=== PATIENT | male | born 1985 ===

== ENCOUNTER 2021-11-12 07:46 | Outpatient (REF) | payer OTHER, SELFPAY ==
--- NOTE | ~2021-11-12 | XR_ITS ---
EXAMINATION: XR WRIST, RIGHT XR WRIST, LEFT CLINICAL INFORMATION: Bilateral wrist pain. COMPARISON: None. TECHNIQUE: PA, lateral, and oblique views of each wrist. 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 The scaphoid is not well seen on these images and a scaphoid deformity or fracture cannot be excluded. There is cystic change in the lunate which may be due to a carpal cyst or degenerative arthrosis. Lunocapitate articulation appears relatively well-preserved. Ulnar styloid is fractured and nondisplaced. LEFT WRIST: Scapholunate interval is widened. 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 Joint spaces remain relatively well preserved. No fractures are identified. Soft tissues are unremarkable. 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 Deformity of the right scaphoid is suspected, potentially due to a prior fracture. This is not well assessed on these images. 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
--- NOTE | ~2021-11-12 | XR_ITS ---
EXAMINATION: XR WRIST, RIGHT XR WRIST, LEFT CLINICAL INFORMATION: Bilateral wrist pain. COMPARISON: None. TECHNIQUE: PA, lateral, and oblique views of each wrist. 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 The scaphoid is not well seen on these images and a scaphoid deformity or fracture cannot be excluded. There is cystic change in the lunate which may be due to a carpal cyst or degenerative arthrosis. Lunocapitate articulation appears relatively well-preserved. Ulnar styloid is fractured and nondisplaced. LEFT WRIST: Scapholunate interval is widened. 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 Joint spaces remain relatively well preserved. No fractures are identified. Soft tissues are unremarkable. 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 Deformity of the right scaphoid is suspected, potentially due to a prior fracture. This is not well assessed on these images. 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
== END 2021-11-12 07:47 | disposition home or self-care (01) ==
LOC: HO.HOSX 07:46
PROVIDERS: Visit Provider Physician Assistant
DX: M19.131 Post-traumatic osteoarthritis, right wrist (principal); M19.132 Post-traumatic osteoarthritis, left wrist
CPT/HCPCS: 73110; 99202

== ENCOUNTER → 2021-12-24 09:48 | Outpatient (BNVA) | payer OTHER, SELFPAY | PROVIDERS: Visit Provider Orthopaedic Surgery | DX: M19.131 Post-traumatic osteoarthritis, right wrist (principal) | CPT/HCPCS: 99202 ==